=== PATIENT | female | born 2005 | race Caucasian/White ===

== ENCOUNTER 2025-07-14 16:47 | Emergency (ER) | payer MEDICAID, SELFPAY ==
[2025-07-14 16:51] VITALS: BP 122/82; PULSE 83; RESP 16; TEMP 36.6; O2SAT 99
--- NOTE | 2025-07-14 17:15 | DI.RAD_ITS ---
Exam(s) XR WRIST RT COMPLETE EXAM: XR WRIST RT COMPLETE CLINICAL HISTORY: pain s/p fall one week ago. TECHNIQUE: 2D digital imaging was performed. COMPARISON: No exams were available for comparison FINDINGS: 3 views No evidence of acute fracture nor dislocation nor significant ulnar variance. Scaphoid and scapholunate distance are normal. Bone density normal. No osseous lesions. No radiopaque foreign bodies. No degenerative changes. IMPRESSION: No acute osseous findings in the wrist. If clinically indicated follow-up MRI can be performed. DATA REPOSITORY: RADIATION DOSE DELIVERED:
--- NOTE | 2025-07-14 17:23 | W.ED.GENAD ---
Discharge Plan Disposition Patient Disposition: Home Condition: Stable Discharge Details Clinical Impression: Right wrist sprain, Abdominal discomfort Primary Care Provider: Jose Raul Guevara ED Provider: Mark Nava Home Meds and New Rx's Prescriptions: Continued fluticasone propionate 44 mcg/actuation HFA aerosol inhaler 2 inh inhalation DAILY Rx Instructions: administer with spacer Allergy Relief (loratadine) 10 mg capsule 10 mg PO DAILY meclizine [Antivert] 25 mg tablet,chewable 25 mg PO TID PRN mometasone 220 mcg/ actuation (30) aerosol powdr breath activated 1 inh inhalation DAILY albuterol sulfate [Ventolin HFA] 90 mcg/actuation HFA aerosol inhaler 2 inh inhalation Q4H PRN No Action albuterol sulfate [Ventolin HFA] 90 mcg/actuation HFA aerosol inhaler 2 inh inhalation ONCE PRN Discharge Instructions Additional Instructions: Your x-ray did not show any broken bones. Your lab work did not show any concerning findings in your urine shows no signs of infection. Follow-up with your primary care provider if you are still having symptoms in 1 to 2 weeks. If you feel more ill, have high fevers or new symptoms such as persistent vomiting return to the emergency department for reevaluation. Stand Alone Forms: Portal Information HPI General Mode of arrival: ambulatory. Date/Time Provider Initiated Documentation: 07/14/25 16:50. Limitations to Documentation: no limitations. Information obtained by: patient. History of Present Illness 20 year old F presents to the emergency department with the chief complaint of right wrist pain, abdominal cramping, described as moderate, Patient started experiencing this week(s) (1) and it has been constant. No relieving factors improve symptom(s), No exacerbating factors reported . Patient notes denies chest pain and shortness of breath. Patient did receive the following treatments prior to arrival, none Related Data Home Medications ?Medication ?Instructions ?Recorded ?Confirmed albuterol sulfate 90 mcg/actuation 2 inh inhalation ONCE PRN 07/14/25 07/14/25 aerosol inhaler (Ventolin HFA) albuterol sulfate 90 mcg/actuation 2 inh inhalation Q4H PRN 07/14/25 07/14/25 aerosol inhaler (Ventolin HFA) fluticasone propionate 44 2 inh inhalation DAILY 12/27/25 12/27/25 mcg/actuation HFA aerosol inhaler loratadine 10 mg capsule (Allergy 10 mg PO DAILY 07/14/25 07/14/25 Relief (loratadine)) meclizine 25 mg chewable tablet 25 mg PO TID PRN 07/14/25 07/14/25 (Antivert) mometasone 220 mcg/actuation(30 1 inh inhalation DAILY 07/14/25 07/14/25 doses) breath activated powder inhaler Allergies Allergy/AdvReac Type Severity Reaction Status Date / Time pineapple Allergy Intermediate Other (See Verified 07/14/25 16:58 Comment) General Stated Complaint: Abd Prob SERGEI: 3 Review of Systems All systems reviewed & are unremarkable except as noted in HPI and below Constitutional Constitutional: Denies chills, Denies fever(s) and Denies weakness Cardiovascular Cardiovascular: Denies chest pain and Denies dyspnea Respiratory Respiratory: Denies cough and Denies dyspnea Gastrointestinal Gastrointestinal: Reports abdominal pain, Denies nausea and Denies vomiting Neurologic Neurologic: Denies weakness Psychiatric Psychiatric: Denies depression Exam Const General: no acute distress Orientation: alert [facility] Head: normal to inspection Ears: external ears normal General nose exam: external nose normal Mouth: moist mucous membranes Eyes General: appearance normal, both eyes and all related structures Neck Neck: normal visual inspection Resp Effort & Inspection: normal respiratory effort and able to speak in complete sentences Cardio Rate: regular rate GI Palpation: soft and nontender Skin General skin exam: no rashes or lesions noted Neuro General: patient alert and patient oriented x3 Extrem General: normal to inspection, full ROM and capillary refill normal Psych Mental Status: mental status grossly normal Course Vital Signs Vital signs: Vital Signs Temperature 36.6 C 07/14/25 16:51 Pulse 83 07/14/25 16:51 Respiratory Rate 16 07/14/25 16:51 Blood Pressure 122/82 07/14/25 16:51 Pulse Oximetry 99 07/14/25 16:51 Temperature 36.6 C 07/14/25 16:51 Temperature Source Oral 07/14/25 16:51 Pulse 83 07/14/25 16:51 Respiratory Rate 16 07/14/25 16:51 Blood Pressure 122/82 07/14/25 16:51 Blood Pressure Position Sitting 07/14/25 16:51 Pulse Oximetry 99 07/14/25 16:51 Oxygen Delivery Method Room Air 07/14/25 16:51 Oxygen Flow Rate 0 07/14/25 16:51 Pain Level 4 07/14/25 16:51 Medical Decision Making 20-year-old female with a history of asthma and fatty liver comes in with chief complaint of right wrist pain after she slipped on ice a week ago. She localizes the pain to the right posterior wrist. She has no visible palpable deformities. She has full range of motion of the wrist though has pain with movement. No tenderness in the hand and has full range of motion of the fingers with intact sensation and pulses.I suspect sprain versus contusion but will obtain x-rays to evaluate for fracture. She also notes that for the past week or 2 she has been having abdominal cramping. She recently finished Bactrim for a possible UTI, urine culture grew mixed zechariah. She denies any urinary symptoms, no fevers or vomiting. Her abdomen is soft and she has no tenderness currently. I suspect this could be some type of irritable bowel syndrome, given lack of abdominal tenderness now I doubt surgical pathology but will obtain screening labs including CBC CMP and lipase. Will also check UA and hcg X-ray unremarkable and blood work and urine without concerning findings. She is stable still is no abdominal tenderness so do not feel imaging of her abdomen is indicated. She will follow-up with her PCP if not improving and return precautions given. I offered to give her a wrist splint but she declined Differential Diagnosis Differential Diagnosis: irritable bowel, sprain, strain Lab Data Lab results reviewed: Yes I reviewed the patient's lab results. PFSH All Active Problems (Updated 07/14/25 @ 19:16 by Mark Nava MD) Abdominal discomfort (Acute) Right wrist sprain (Acute) Social History Smoking/Tobacco Use Status: Never Smoking risk assessment performed?: Yes Alcohol Intake: never Drug use: Never Substance use type: does not use Do you feel safe at home: Yes Do you feel safe in your relationship?: Yes
[2025-07-14 18:08] LABS: Abs Immature Grans 0.02 10^3/uL (0.0-0.06); HCT 39.6 % (36.0-46.0); HGB 12.7 g/dL (11.2-15.7); Immature Grans % 0.2 %; MCH 26.1 pg (27.0-33.0); MCHC 32.1 % (32.0-36.0); MCV 81 fL (80-95); MPV 8.2 fL (8.0-11.0); Platelet Count 399 10^3/uL (130-400); RBC 4.87 10^6/uL (3.93-5.22); RDW 13.3 % (11.7-14.6); RDW-SD 39.2 fL; WBC 8.77 10^3/uL (4.4-10.8)
[2025-07-14 18:25] LABS: ALT 49 U/L (10-49); AST 27 U/L (<34); Albumin 4.8 g/dL (3.2-5.0); Alkaline Phosphatase 103 U/L (46-116); Anion Gap 5.8 mmol/L (3-11); BUN 9 mg/dL (9-23); Bilirubin, Total 0.3 mg/dL (0.2-1.2); CO2 28.2 mmol/L (20.0-31.0); Calcium 9.4 mg/dL (8.3-10.6); Chloride 106 mmol/L (98-107); Glucose 81 mg/dL (74-106); Lipase 40 U/L (<53); Magnesium 2.0 mg/dL (1.6-2.6); Potassium 3.8 mmol/L (3.5-5.1); Sodium 140 mmol/L (136-145); Total Protein 8.1 g/dL (5.7-8.2)
[2025-07-14 18:40] LABS: Glucose Negative (Negative)
[2025-07-14 18:54] LABS: C & S Indicated? No
[2025-07-14 19:33] VITALS: BP 127/63; PULSE 74; RESP 16; O2SAT 100
== END 2025-07-14 19:47 | disposition home or self-care (01) ==
PROVIDERS: Emergency Provider Emergency Medicine; PCP Family Medicine
DX: S63.501A Unspecified sprain of right wrist, initial encounter (principal); R10.10 Upper abdominal pain, unspecified; W00.0XXA Fall on same level due to ice and snow, initial encounter; Y93.01 Activity, walking, marching and hiking
CPT/HCPCS: 36415; 80053; 81025; 83690; 99283; 73110; 81003; 81015; 83735; 85025